=== PATIENT | female | born 1975 | race Caucasian/White ===

== ENCOUNTER → 2016-08-26 | Outpatient (CLI) | payer BC ==
--- NOTE | 2016-08-26 11:56 | MM ---
Reason for exam: additional evaluation requested from prior study. Last mammogram was performed 1 year and 1 month ago. History: Taking hormonal contraceptives for 7 years. Physical Findings: Nurse did not find any significant physical abnormalities on exam. MG Diagnostic Mammo w CAD PAIGE Bilateral CC and MLO view(s) were taken. Prior study comparison: August 06, 2015, left breast MG 3d work up w/cad LT. July 25, 2015, bilateral MG screening mammo w CAD. The breast tissue is heterogeneously dense. This may lower the sensitivity of mammography. The nodularity far posterior 9 o'clock left breast is stable to slightly smaller. This can be reassessed again in 1 year. We not prior ultrasound showed cysts. No significant new findings when compared with previous films. These results were verbally communicated with the patient and result sheet given to the patient on 08/26/16. ASSESSMENT: Probably benign, BI-RAD 3 RECOMMENDATION: Follow-up diagnostic mammogram of both breasts in 1 year.
== END | disposition home or self-care (01) ==
LOC: RADMAMWWP 10:21
PROVIDERS: ATTEND Obstetrics & Gynecology
DX: R92.8 Other abnormal and inconclusive findings on diagnostic imaging of breast (principal)

== ENCOUNTER → 2017-10-04 | Outpatient (CLI) | payer BC ==
--- NOTE | 2017-10-05 07:36 | MM ---
Reason for exam: additional evaluation requested from prior study. Last mammogram was performed 1 year and 1 month ago. History: Taking hormonal contraceptives for 7 years. Physical Findings: Nurse did not find any significant physical abnormalities on exam. MG Diagnostic Mammo w CAD PAIGE Bilateral CC and MLO view(s) were taken. Prior study comparison: August 26, 2016, bilateral MG diagnostic mammo w CAD PAIGE. August 06, 2015, left breast MG 3d work up w/cad LT. The breast tissue is heterogeneously dense. This may lower the sensitivity of mammography. There is chronic nodularity in the left breast, this is stable from 07/25/15. These results were verbally communicated with the patient and result sheet given to the patient on 10/04/17. ASSESSMENT: Benign, BI-RAD 2 RECOMMENDATION: Routine screening mammogram of both breasts in 1 year.
== END | disposition home or self-care (01) ==
LOC: RADMAMWWP 15:33
PROVIDERS: ATTEND Obstetrics & Gynecology
DX: R92.8 Other abnormal and inconclusive findings on diagnostic imaging of breast (principal)
CPT/HCPCS: 77066

== ENCOUNTER 2019-02-19 12:18 | Emergency (ER) | payer BC ==
[2019-02-19 13:08] VITALS: RESP 18; TEMP 98.6
[2019-02-19 13:39] LABS: Amorphous Sediment,Urine Occasional /hpf; Appearance,Urine Clear (Clear); Bilirubin,Urine Negative (Negative); Blood,Urine Moderate (Negative); Color,Urine Yellow; Glucose,Urine (UA) Negative (Negative); Ketones,Urine Negative (Negative); Leukocyte Esterase,Urine Negative (Negative); Mucus,Urine Moderate /hpf; Nitrite,Urine Negative (Negative); PH, Urine 5.5 (5.0-8.0); Protein,Urine Trace (Negative); RBC,Urine <1 /hpf (0-5); Specific Gravity,Urine 1.025 (1.001-1.035); Squamous Epithelial Cell,Urine 1 /hpf (0-4); Urobilinogen,Urine <2.0 mg/dL (<2.0); WBC,Urine 2 /hpf (0-5)
[2019-02-19 14:09] LABS: ALT 21 U/L (9-52); AST 16 U/L (14-36); African American GFR (CKD) >90 (>60 ml/min/1.73 sqM); Albumin 3.8 g/dL (3.5-5.0); Alkaline Phosphatase 80 U/L (38-126); Amylase 58 U/L (30-110); Anion Gap 9 mmol/L; Blood Urea Nitrogen 11 mg/dL (7-17); Calcium 9.4 mg/dL (8.4-10.2); Carbon Dioxide 24 mmol/L (22-30); Chloride 107 mmol/L (98-107); Glucose 112 mg/dL (74-99); Lipase 116 U/L (23-300); Potassium 4.1 mmol/L (3.5-5.1); Sodium 140 mmol/L (137-145); Total Bilirubin 0.4 mg/dL (0.2-1.3); Total Protein 6.8 g/dL (6.3-8.2)
[2019-02-19 14:25] LABS: Basophils # (A) 0.1 k/uL (0-0.2); Basophils % (A) 1 %; Eosinophils # (A) 0.4 k/uL (0-0.7); Eosinophils % (A) 3 %; HCT 41.5 % (34.0-46.0); HGB 13.1 gm/dL (11.4-16.0); Lymphocytes # (A) 2.9 k/uL (1.0-4.8); Lymphocytes % (A) 23 %; MCH 27.3 pg (25.0-35.0); MCHC 31.5 g/dL (31.0-37.0); MCV 86.7 fL (80.0-100.0); Mean Platelet Volume 7.8; Monocytes # (A) 0.9 k/uL (0-1.0); Monocytes % (A) 7 %; Neutrophils # (A) 8.6 k/uL (1.3-7.7); Neutrophils % (A) 66 %; Platelet Count 475 k/uL (150-450); RBC 4.79 m/uL (3.80-5.40); RDW 14.8 % (11.5-15.5)
[2019-02-19] MEDS ORDERED: MORPHINE SULFATE 4 MG/ML SYRINGE IVP STA (14:38)
[2019-02-19] MEDS ORDERED: ONDANSETRON 4 MG/2 ML VIAL IVP STA ×2 (14:38→17:31)
[2019-02-19] MEDS ORDERED: SODIUM CHLORIDE 0.9% 1,000 ML IV ONE (14:38)
--- NOTE | 2019-02-19 15:10 | ED ---
Abdominal Pain HPI - General Chief Complaint: Abdominal Pain Stated Complaint: abdominal pain Time Seen by Provider: 02/19/19 14:24 Source: patient, RN notes reviewed, old records reviewed Mode of arrival: ambulatory Limitations: no limitations - History of Present Illness Initial Comments: Patient is a 44-year-old female presents emergency department today with left lower quadrant abdominal pain. Patient reports her symptoms started for the past 3 days. Patient states that she was sent to the emergency room for mental express Patient denies any urinary symptoms. She's not had a colonoscopy. She has no know history of diverticulitis. Surgical history includes cholecystectomy and hernia repair done by Dr. Newsome. She reports as years ago. She denies any significant vomiting but does feel nauseated. Denies any changes in bowel habits. - Related Data Previous Rx's Medication Instructions Recorded Amoxic-Pot Clav 875-125Mg 1 tab PO Q12HR #14 tablet 02/19/19 [Augmentin 875-125] Allergies Allergy/AdvReac Type Severity Reaction Status Date / Time No Known Allergies Allergy Verified 02/19/19 14:28 Review of Systems ROS Statement: Those systems with pertinent positive or pertinent negative responses have been documented in the HPI. ROS Other: All systems not noted in ROS Statement are negative. Past Medical History Past Medical History: No Reported History History of Any Multi-Drug Resistant Organisms: None Reported Past Surgical History: Section, Cholecystectomy, Hernia Repair Past Psychological History: No Psychological Hx Reported Smoking Status: Never smoker Past Alcohol Use History: Occasional Past Drug Use History: None Reported General Exam - General Exam Comments Initial Comments: 44-year-old female. Alert and oriented. No significant distress. Limitations: no limitations General appearance: alert, in no apparent distress Head exam: Present: atraumatic, normocephalic, normal inspection Eye exam: Present: normal appearance, PERRL, EOMI. Absent: scleral icterus, conjunctival injection, periorbital swelling ENT exam: Present: normal exam, mucous membranes moist Neck exam: Present: normal inspection. Absent: tenderness, meningismus, lymp hadenopathy Respiratory exam: Present: normal lung sounds bilaterally. Absent: respiratory distress, wheezes, rales, rhonchi, stridor Cardiovascular Exam: Present: regular rate, normal rhythm, normal heart sounds. Absent: systolic murmur, diastolic murmur, rubs, gallop, clicks GI/Abdominal exam: Present: soft, tenderness (Left lower quadrant tenderness.), normal bowel sounds. Absent: distended, guarding, rebound, rigid Extremities exam: Present: normal inspection, full ROM, normal capillary refill. Absent: tenderness, pedal edema, joint swelling, calf tenderness Back exam: Present: normal inspection Neurological exam: Present: alert, oriented X3, CN II-XII intact Psychiatric exam: Present: normal affect, normal mood Skin exam: Present: warm, dry, intact, normal color. Absent: rash Course Vital Signs 02/19/19 02/19/19 13:05 16:50 Temperature 98.6 F Pulse Rate 88 102 H Respiratory 18 18 Rate Blood Pressure 134/86 128/79 O2 Sat by Pulse 98 97 Oximetry Medical Decision Making - Medical Decision Making Patient is a 44-year-old female who presents emergency department today for evaluation with complaints of left-sided abdominal pain onset 3 days. Patient labwork was reviewed and unremarkable as had some mild leukocytosis. Urinalysis is positive for injury however Patient is on her menstrual cycle. This time abdomen and pelvis CT was completed shows evidence of enteritis information within the bowels. There is no sign of significant diverticulitis or abscess of the abdomen. There is also an abnormal finding over the latter discussed the Patient can get this reevaluated by bladder ultrasound for 6 weeks. Patient has been advised of these abnormal findings and discussion is follow-up with her PCP. The meantime we'll start the Patient on a short course of Flagyl and Rocephin with concern for possibility of some diverticulitis and close PCP fol low-up. - Lab Data Result diagrams: 02/19/19 13:35 02/19/19 13:35 Lab Results 02/19/19 02/19/19 02/19/19 Range/Units 13:10 13:35 13:35 WBC 13.0 H (3.8-10.6) k/uL RBC 4.79 (3.80-5.40) m/uL Hgb 13.1 (11.4-16.0) gm/dL Hct 41.5 (34.0-46.0) % MCV 86.7 (80.0-100.0) fL MCH 27.3 (25.0-35.0) pg MCHC 31.5 (31.0-37.0) g/dL RDW 14.8 (11.5-15.5) % Plt Count 475 H (150-450) k/uL Neutrophils % 66 % Lymphocytes % 23 % Monocytes % 7 % Eosinophils % 3 % Basophils % 1 % Neutrophils # 8.6 H (1.3-7.7) k/uL Lymphocytes # 2.9 (1.0-4.8) k/uL Monocytes # 0.9 (0-1.0) k/uL Eosinophils # 0.4 (0-0.7) k/uL Basophils # 0.1 (0-0.2) k/uL Sodium 140 (137-145) mmol/L Potassium 4.1 (3.5-5.1) mmol/L Chloride 107 (98-107) mmol/L Carbon Dioxide 24 (22-30) mmol/L Anion Gap 9 mmol/L BUN 11 (7-17) mg/dL Creatinine 0.59 (0.52-1.04) mg/dL Est GFR (CKD-EPI)AfAm >90 (>60 ml/min/1.73 sqM) Est GFR (CKD-EPI)NonAf >90 (>60 ml/min/1.73 sqM) Glucose 112 H (74-99) mg/dL Calcium 9.4 (8.4-10.2) mg/dL Total Bilirubin 0.4 (0.2-1.3) mg/dL AST 16 (14-36) U/L ALT 21 (9-52) U/L Alkaline Phosphatase 80 (38-126) U/L Total Protein 6.8 (6.3-8.2) g/dL Albumin 3.8 (3.5-5.0) g/dL Amylase 58 (30-110) U/L Lipase 116 (23-300) U/L Urine Color Yellow Urine Appearance Clear (Clear) Urine pH 5.5 (5.0-8.0) Ur Specific [place] 1.025 (1.001-1.035) Urine Protein Trace H (Negative) Urine Glucose (UA) Negative (Negative) Urine Ketones Negative (Negative) Urine Blood Moderate H (Negative) Urine Nitrite Negative (Negative) Urine Bilirubin Negative (Negative) Urine Urobilinogen <2.0 (<2.0) mg/dL Ur Leukocyte Esterase Negative (Negative) Urine RBC <1 (0-5) /hpf Urine WBC 2 (0-5) /hpf Ur Squamous Epith Cells 1 (0-4) /hpf Amorphous Sediment Occasional H (None) /hpf Urine Mucus Moderate H (None) /hpf - Radiology Data Radiology results: report reviewed Patient has some scattered prominent fluid-filled small bowel loops in the lower abdomen and pelvis could represent a mild enteritis. A 1.3 cm nodular somewhat strandy focus along the right paramedian anterior bladder wall of uncertain etiology. Some type of nonspecific information as possible such as inflammation of the Urecholine reminiscent, bladder ultrasound can attempt visualization. If this is seen by ultrasound the area can be reassessed by ultrasound for 6 weeks otherwise 3 month follow-up computed tomography scan to insure stability and resolution. Physiologic appearing changes in both ovaries. Disposition Clinical Impression: LLQ abdominal pain, Structural abnormality of bladder Disposition: HOME SELF-CARE Condition: Good Instructions (If sedation given, give patient instructions): Enteritis (ED), Acute Abdominal Pain (ED), Diverticulitis (ED) Additional Instructions: Patient advised to have close follow-up with PCP. Patient should've clear liquid diet. Return to the emergency department if any alarming signs or sym ptoms occur. Take the antibiotics as prescribed. Prescriptions: Amoxic-Pot Clav 875-125Mg [Augmentin 875-125] 1 tab PO Q12HR #14 tablet Is patient prescribed a controlled substance at d/c from ED?: No Referrals: Kenton Manjarrez MD [Primary Care Provider] - 1-2 days Time of Disposition: 17:26
--- NOTE | 2019-02-19 17:20 | CT ---
EXAMINATION TYPE: CT abdomen pelvis w con DATE OF EXAM: 02/19/2019 COMPARISON: NONE HISTORY: 44-year-old female Left lower quadrant pain. TECHNIQUE: Contiguous axial scanning of the abdomen and pelvis following administration of 100 ml Iso zuleyka 300 IV contrast. Delayed images through the kidneys and coronal/sagittal reconstructions perform ed. CT DLP: 963.3 mGycm Automated exposure control for dose reduction was used. FINDINGS: LUNG BASES: No significant abnormality is appreciated. LIVER/GB: Liver is mildly enlarged at 18.8 cm. Vascular shunting versus flash filling hemangioma late ral left liver lobe measuring 1.9 cm. Gallbladder surgically absent. No biliary ductal dilatation. Po rtal venous system is patent PANCREAS: No significant abnormality is seen. SPLEEN: No significant abnormality is seen. ADRENALS: No significant abnormality is seen. KIDNEYS: No significant abnormality is seen. REPRODUCTIVE ORGANS: IUD appropriately situated within the uterine cavity. Uterus is anteverted. Both ovaries are visualized. 1.8 cm dominant follicle or functional cyst in the right ovary. Peripherally enhancing 1.1 cm crenulated cystic structure left ovary likely corpus luteum. A tampon is present. 1.3 cm nodular soft tissue strandy focus along the right paramedian anterior bladder wall of uncertai n etiology BOWEL: Some prominent fluid-filled small bowel loops in the lower abdomen and pelvis. Scattered mild stool in the colon. No pericolonic inflammatory change seen. Appendix not discretely visualized. No secondary findings of acute appendicitis. Mild degenerative changes lower lumbar spine. IMPRESSION: 1. SOME SCATTERED PROMINENT FLUID-FILLED SMALL BOWEL LOOPS IN THE LOWER ABDOMEN AND PELVIS COULD REPR ESENT A MILD ENTERITIS. 2. A 1.3 CM NODULAR, SOMEWHAT STRANDY FOCUS ALONG THE RIGHT PARAMEDIAN ANTERIOR BLADDER WALL IS OF UN CERTAIN ETIOLOGY. SOME TYPE OF NONSPECIFIC INFLAMMATION IS POSSIBLE SUCH INFLAMMATION OF A URACHAL REMNANT. BLADDER ULTRASOUND CAN ATTEMPT VISUALIZATION. IF IT IS SEEN BY ULTRASOUND, THE AREA CAN BE REASSESSED BY ULTRASOUND IN 4-6 WEEKS. OTHERWISE, THREE-MONTH FOLLOW-UP CT CAN ENSURE STABILITY/RESOL UTION. 3. PHYSIOLOGIC APPEARING CHANGES WITHIN BOTH OVARIES.
[2019-02-19] MEDS ORDERED: AMOXIC-POT CLAV 875MG STARTER 2 EACH TABLET PO STA (17:32)
[2019-02-19] MEDS ORDERED: ACET/COD 300 MG/30 MG STARTER PACK 6 TAB BTL PO STA (17:41)
[2019-02-19 17:59] VITALS: BP 117/60; PULSE 88
== END 2019-02-19 17:58 | disposition home or self-care (01) ==
LOC: EC 12:18
DX: R10.32 Left lower quadrant pain (principal); Q64.70 Unspecified congenital malformation of bladder and urethra; D72.829 Elevated white blood cell count, unspecified
CPT/HCPCS: 36415; 80053; 82150; 83690; 85025; 81001; 74177; 99285; 96374; 96375; 96376; 96361; J2270; J2405; Q9967; 99284

== ENCOUNTER 2019-02-22 00:35 | Emergency (ER) | payer BC ==
[2019-02-22 00:44] VITALS: TEMP 98.3
[2019-02-22] MEDS ORDERED: ONDANSETRON 4 MG/2 ML VIAL IVP STA (00:52)
[2019-02-22] MEDS ORDERED: SODIUM CHLORIDE 0.9% 1,000 ML IV STA (00:52)
[2019-02-22] MEDS ORDERED: MORPHINE SULFATE 4 MG/ML SYRINGE IV STA (00:52)
[2019-02-22 01:51] LABS: Basophils # (A) 0.1 k/uL (0-0.2); Basophils % (A) 1 %; Eosinophils # (A) 0.5 k/uL (0-0.7); Eosinophils % (A) 4 %; HCT 37.3 % (34.0-46.0); HGB 12.2 gm/dL (11.4-16.0); Lymphocytes # (A) 3.9 k/uL (1.0-4.8); Lymphocytes % (A) 29 %; MCH 28.7 pg (25.0-35.0); MCHC 32.7 g/dL (31.0-37.0); MCV 87.8 fL (80.0-100.0); Monocytes # (A) 0.9 k/uL (0-1.0); Monocytes % (A) 6 %; Neutrophils # (A) 8.1 k/uL (1.3-7.7); Neutrophils % (A) 59 %; Platelet Count 481 k/uL (150-450); RBC 4.24 m/uL (3.80-5.40); RDW 15.3 % (11.5-15.5); WBC 13.7 k/uL (3.8-10.6)
--- NOTE | 2019-02-22 01:58 | XR ---
INDICATION: Abdominal pain COMPARISON: None. FINDINGS: Supine and upright AP views of the abdomen are provided. The bowel gas pattern is nonspecific and nonobstructive. No bowel dilatation is seen. There is no evidence of free air on upright views. There has been prior cholecystectomy. An IUD is in place within the uterus. There are no acute osseous findings. IMPRESSION: Nonspecific, nonobstructive bowel gas pattern.
[2019-02-22 02:18] LABS: ALT 93 U/L (9-52); AST 42 U/L (14-36); African American GFR (CKD) >90 (>60 ml/min/1.73 sqM); Albumin 3.7 g/dL (3.5-5.0); Alkaline Phosphatase 78 U/L (38-126); Amylase 48 U/L (30-110); Anion Gap 7 mmol/L; Blood Urea Nitrogen 9 mg/dL (7-17); Calcium 9.2 mg/dL (8.4-10.2); Carbon Dioxide 25 mmol/L (22-30); Chloride 106 mmol/L (98-107); Glucose 115 mg/dL (74-99); Lipase 99 U/L (23-300); Potassium 3.8 mmol/L (3.5-5.1); Sodium 138 mmol/L (137-145); Total Bilirubin 0.3 mg/dL (0.2-1.3); Total Protein 6.6 g/dL (6.3-8.2)
[2019-02-22 02:29] VITALS: BP 120/77; PULSE 73; RESP 16
[2019-02-22] MEDS ORDERED: HYDROmorphone 1 MG/ML 1 ML SYRINGE IVP STA (02:29)
--- NOTE | 2019-02-22 03:16 | ED ---
Abdominal Pain HPI - General Chief Complaint: Abdominal Pain Stated Complaint: Abd Pain Time Seen by Provider: 02/22/19 00:48 Source: patient Mode of arrival: ambulatory Limitations: no limitations - History of Present Illness Initial Comments: 44-year-old female patient presents the emergency department today for evaluation of left lower quadrant abdominal pain. Patient states that symptoms started 5 days ago. Patient states she was seen and evaluated here for this on Tuesday. She was diagnosed with enteritis and discharged home. Patient states t srikanth the pain has worsened significantly. She describes as a sharp stabbing pains of the left lower abdomen. States the pain is radiating to the left low back. States that she has had nausea but no vomiting. Denies any fever or chills. Denies any hematuria, dysuria, urinary frequency, urinary urgency. Denies any abnormal vaginal bleeding or discharge. Patient denies any recent rash, shortness breath, chest pain, back pain, numbness, tingling, dizziness, weakness, headache, visual changes, or any other complaints. - Related Data Home Medications Medication Instructions Recorded Confirmed Acetaminophen-Codeine 300-30mg 02/22/19 02/22/19 [Tylenol w/codeine #3] Previous Rx's Medication Instructions Recorded Amoxic-Pot Clav 875-125Mg 1 tab PO Q12HR #14 tablet 02/19/19 [Augmentin 875-125] Allergies Allergy/AdvReac Type Severity Reaction Status Date / Time No Known Allergies Allergy Verified 02/19/19 14:28 Review of Systems ROS Statement: Those systems with pertinent positive or pertinent negative responses have been documented in the HPI. ROS Other: All systems not noted in ROS Statement are negative. Past Medical History Past Medical History: No Reported History History of Any Multi-Drug Resistant Organisms: None Reported Past Surgical History: Section, Cholecystectomy, Hernia Repair Past Psychological History: No Psychological Hx Reported Smoking Status: Never smoker Past Alcohol Use History: Occasional Past Drug Use History: None Reported General Exam Limitations: no limitations General appearance: alert, in no apparent distress, other (This is a well- developed, well-nourished adult female patient in no acute distress. Vital signs upon presentation are temperature 98.3F, pulse 98, respirations 20, blood pressure 126/91, pulse ox 96% on room air.) Eye exam: Present: normal appearance, PERRL, EOMI. Absent: scleral icterus, conjunctival injection, periorbital swelling ENT exam: Present: normal exam, normal oropharynx, mucous membranes moist Respiratory exam: Present: normal lung sounds bilaterally. Absent: respiratory distress, wheezes, rales, rhonchi, stridor Cardiovascular Exam: Present: regular rate, normal rhythm, normal heart sounds. Absent: systolic murmur, diastolic murmur, rubs, gallop, clicks GI/Abdominal exam: Present: soft, tenderness (Left lower quadrant tenderness), normal bowel sounds. Absent: distended, guarding, rebound, rigid Neurological exam: Present: alert, oriented X3, CN II-XII intact Psychiatric exam: Present: normal affect, normal mood Skin exam: Present: warm, dry, intact, normal color. Absent: rash Course Vital Signs 02/22/19 02/22/19 00:40 02:28 Temperature 98.3 F Pulse Rate 98 73 Respiratory 20 16 Rate Blood Pressure 126/91 120/77 O2 Sat by Pulse 96 98 Oximetry Medical Decision Making - Medical Decision Making 44-year-old female patient presents to the emergency department today for evaluation of left sided abdominal pain mostly in the left lower quadrant. Physical examination did reveal left lower quadrant tenderness. Labs reviewed and did reveal elevated white blood cell count at 13.7. Mildly elevated liver enzymes. As patient's pain significantly worsened we did perform CT abdomen and pelvis which showed diffusely fluid-filled small bowel loops possibly gastroenteritis, possibly a urinary remnant but no other findings. Patient is currently taking antibiotics for this. She'll be discharged home with Tylenol codeine and Zofran for nausea. She is instructed to follow-up with her surgeon Dr. Newsome discuss colonoscopy for further evaluation of her symptoms. She is instructed to follow-up with her primary care physician for recheck in 1-2 days. Return parameters discussed in detail. She verbalizes understanding and agrees with this plan - Lab Data Result diagrams: 02/22/19 01:25 02/22/19 01:25 Lab Results 02/22/19 02/22/19 02/22/19 Range/Units 01:25 01:25 01:25 WBC 13.7 H (3.8-10.6) k/uL RBC 4.24 (3.80-5.40) m/uL Hgb 12.2 (11.4-16.0) gm/dL Hct 37.3 (34.0-46.0) % MCV 87.8 (80.0-100.0) fL MCH 28.7 (25.0-35.0) pg MCHC 32.7 (31.0-37.0) g/dL RDW 15.3 (11.5-15.5) % Plt Count 481 H (150-450) k/uL Neutrophils % 59 % Lymphocytes % 29 % Monocytes % 6 % Eosinophils % 4 % Basophils % 1 % Neutrophils # 8.1 H (1.3-7.7) k/uL Lymphocytes # 3.9 (1.0-4.8) k/uL Monocytes # 0.9 (0-1.0) k/uL Eosinophils # 0.5 (0-0.7) k/uL Basophils # 0.1 (0-0.2) k/uL Sodium 138 (137-145) mmol/L Potassium 3.8 (3.5-5.1) mmol/L Chloride 106 (98-107) mmol/L Carbon Dioxide 25 (22-30) mmol/L Anion Gap 7 mmol/L BUN 9 (7-17) mg/dL Creatinine 0.57 (0.52-1.04) mg/dL Est GFR (CKD-EPI)AfAm >90 (>60 ml/min/1.73 sqM) Est GFR (CKD-EPI)NonAf >90 (>60 ml/min/1.73 sqM) Glucose 115 H (74-99) mg/dL Plasma Lactic Acid Akin 0.9 (0.7-2.0) mmol/L Calcium 9.2 (8.4-10.2) mg/dL Total Bilirubin 0.3 (0.2-1.3) mg/dL AST 42 H (14-36) U/L ALT 93 H (9-52) U/L Alkaline Phosphatase 78 (38-126) U/L Total Protein 6.6 (6.3-8.2) g/dL Albumin 3.7 (3.5-5.0) g/dL Amylase 48 (30-110) U/L Lipase 99 (23-300) U/L - Radiology Data Radiology results: report reviewed, image reviewed KUB x-ray of the abdomen is obtained. Report was reviewed in its entirety. Impression by Dr. Erma shows nonspecific, nonobstructive bowel gas pattern CT abdomen and pelvis is obtained with contrast. Report was reviewed in its entirety. Impression by Dr. Dolan shows diffusely fluid-filled small bowel some hyperemia, cannot exclude gastroenteritis. No bowel obstruction. Appendix is normal. Hepatic steatosis. Nonspecific structure anterior to the bladder, again this may represent urachal remnant. No significant inflammatory changes are seen. Overall no significant change from prior exam and no definitive acute processes identified. Disposition Clinical Impression: Abdominal pain, Enteritis Disposition: HOME SELF-CARE Condition: Good Instructions (If sedation given, give patient instructions): Abdominal Pain (ED), Enteritis (ED) Additional Instructions: Increase fluids. Take medication as directed. Follow up with the sticker hand for recheck as soon as possible. Return to the emergency department for any new, worsening, or concerning symptoms. Is patient prescribed a controlled substance at d/c from ED?: No Referrals: Kenton Manjarrez MD [Primary Care Provider] - 1-2 days Time of Disposition: 03:31
--- NOTE | 2019-02-22 03:17 | CT ---
EXAM: CT Abdomen and Pelvis With Intravenous Contrast CLINICAL HISTORY: ITS.REASON CT Reason: Pain TECHNIQUE: Axial computed tomography images of the abdomen and pelvis with intravenous contrast. CTDI is 13 mGy and DLP is 351 mGy-cm. This CT exam was performed using one or more of the following dose reduction techniques: automated exposure control, adjustment of the mA and/or kV according to patient size, and/or use of iterative reconstruction technique. COMPARISON: CT abdomen 02/19/19 FINDINGS: See impression. IMPRESSION: Since the short interval from 02/19/19: 1. Again there is diffusely fluid-filled small bowel with some hyperemia, cannot exclude gastroenteritis. No bowel obstruction. Appendix is normal. 2. Hepatic steatosis. 3. Nonspecific structure anterior to the bladder, again this may represent a urachal remnant. No significant inflammatory changes are seen. 4. Overall no significant change from the prior exam and no definitive acute process is identified.
[2019-02-22] MEDS ORDERED: ONDANSETRON 4 MG ODT STARTER PACK 2 TAB BTL PO STA (03:31)
[2019-02-22] MEDS ORDERED: ACET/COD 300 MG/30 MG STARTER PACK 6 TAB BTL PO STA (03:31)
== END 2019-02-22 04:16 | disposition home or self-care (01) ==
LOC: EC 00:35
DX: K52.9 Noninfective gastroenteritis and colitis, unspecified (principal); Z79.891 Long term (current) use of opiate analgesic; Z90.49 Acquired absence of other specified parts of digestive tract
CPT/HCPCS: 99284; 96374; 96375 ×2; 96361; 36415; 80053; 82150; 83605; 83690; 85025; 74018; 74177; J2270; J2405; J1170; S0119; Q9967

== ENCOUNTER → 2019-10-15 | Outpatient (CLI) | payer BC ==
--- NOTE | 2019-10-17 07:35 | MM ---
Reason for exam: screening (asymptomatic). Last mammogram was performed 2 years ago. History: Taking hormonal contraceptives for 12 years. Physical Findings: A clinical breast exam by your physician is recommended on an annual basis and results should be correlated with mammographic findings. MG 3D Screening Mammo W/Cad Bilateral CC and MLO view(s) were taken. Prior study comparison: October 04, 2017, bilateral MG diagnostic mammo w CAD PAIGE. August 26, 2016, bilateral MG diagnostic mammo w CAD PAIGE. The breast tissue is heterogeneously dense. This may lower the sensitivity of mammography. Focal asymmetry posterior left breast. No significant changes when compared with prior studies. ASSESSMENT: Benign, BI-RAD 2 RECOMMENDATION: Routine screening mammogram of both breasts in 1 year.
== END | disposition home or self-care (01) ==
LOC: RADMAMWWP 16:30
PROVIDERS: ATTEND Obstetrics & Gynecology
DX: Z12.31 Encounter for screening mammogram for malignant neoplasm of breast (principal)
CPT/HCPCS: 77063; 77067

== ENCOUNTER → 2020-01-25 | Outpatient (CLI) | payer BC ==
[2020-01-25 10:28] LABS: Basophils # (A) 0.1 k/uL (0-0.2); Basophils % (A) 1 %; Eosinophils # (A) 0.6 k/uL (0-0.7); Eosinophils % (A) 6 %; HCT 42.8 % (34.0-46.0); HGB 13.8 gm/dL (11.4-16.0); Lymphocytes # (A) 2.8 k/uL (1.0-4.8); Lymphocytes % (A) 26 %; MCHC 32.2 g/dL (31.0-37.0); MCV 93.3 fL (80.0-100.0); Mean Platelet Volume 6.9; Monocytes # (A) 0.5 k/uL (0-1.0); Monocytes % (A) 5 %; Neutrophils # (A) 6.7 k/uL (1.3-7.7); Neutrophils % (A) 62 %; Platelet Count 432 k/uL (150-450); RBC 4.59 m/uL (3.80-5.40); WBC 10.8 k/uL (3.8-10.6)
== END | disposition home or self-care (01) ==
LOC: LABPAT 09:43
PROVIDERS: ATTEND Obstetrics & Gynecology
DX: Z01.818 Encounter for other preprocedural examination (principal)
CPT/HCPCS: 85025

== ENCOUNTER 2020-02-07 05:48 | Day surgery (SDC) | payer BC ==
[2020-02-05 12:46] VITALS: BMI 35.9
--- NOTE | 2020-02-06 07:34 | P.HPOB ---
History of Present Illness H&P Date: 02/06/20 Chief Complaint: Menorrhagia, IUD with retracted strings This patient is a pleasant 45 yr female with long standing menorrhagia and IUD with retracted strings. Office attempt at removal was unsuccessful so now presents for hysteroscopy, D&C, IUD removal and also requesting endometrial ablation for treatment of menorrhagia. She has taken Anaprox in the past with some relief of dysmenorrhea as well. intends on getting a vasectomy. Review of Systems Genitourinary: Reports menorrhagia Past Medical History Past Medical History: No Reported History History of Any Multi-Drug Resistant Organisms: None Reported Past Surgical History: Section, Cholecystectomy, Hernia Repair Past Anesthesia/Blood Transfusion Reactions: No Reported Reaction Past Psychological History: No Psychological Hx Reported Smoking Status: Never smoker Past Alcohol Use History: None Reported Past Drug Use History: None Reported - Past Family History Mother Family Medical History: Cancer, Pulmonary Embolus Additional Family Medical History / Comment(s): ESOPHAGEAL CANCER Medications and Allergies Home Medications Medication Instructions Recorded Confirmed Type Phentermine HCl [Adipex P] 15 mg PO AC-[id number] 02/05/20 02/05/20 History Allergies Allergy/AdvReac Type Severity Reaction Status Date / Time No Known Allergies Allergy Verified 02/05/20 11:32 Exam - OBG Physical Exam Abdomen: bowel sounds normal, no diffuse tenderness, no bruit present, no guarding noted, no hepatomegaly, no splenomegaly, no mass Vulva: both: normal Vagina: normal moisture, no discharge Cervix: no lesion, no discharge Uterus: normal size Results Ultrasound shows normal uterus and ovaries. IUD in place. Assessment and Plan Assessment: This is a pleasant 45 yr female with longstanding menorrhagia and IUD in place with known retracted strings. Plan is hysteroscopy, D&C, IUD removal, and Novasure endometrial ablation. I have discussed this surgery in detail with Joy including the risks: infection, bleeding, possible uterine perforation and/or thermal injury. She also understands that this is not a form of control and needs to use a reliable form to prevent . (1) Menorrhagia with regular cycle Status: Chronic Code(s): N92.0 - EXCESSIVE AND FREQUENT MENSTRUATION WITH REGULAR CYCLE SNOMED Code(s): 523635798 (2) IUD (intrauterine device) in place Status: Chronic Code(s): Z97.5 - PRESENCE OF (INTRAUTERINE) CONTRACEPTIVE DEVICE SNOMED Code(s): 418844404
[~2020-02-07 05:48] MED LIST: DEXAMETHASONE SOD PHOSPHATE 10 MG/ML 1 ML VIAL IV ONE; LACTATED RINGERS 1,000 ML IV SCH; MIDAZOLAM 2 MG/2 ML VIAL IV PRN; ONDANSETRON 4 MG/2 ML VIAL IVP ONE; Pre Op ABX Message 1 EACH MISC MISCELLANE ONE
[2020-02-07] MEDS ORDERED: LIDOCAINE 1% (10MG/ML) FOR IV START INTRADERMA ONE (06:26)
[2020-02-07] MEDS ORDERED: ONDANSETRON 4 MG/2 ML VIAL ONE (06:30)
--- NOTE | 2020-02-07 07:37 | P.OP ---
Date of Procedure: 02/07/20 Preoperative Diagnosis: #1: Menorrhagia. #2: IUD in place with retracted strings Postoperative Diagnosis: Same Procedure(s) Performed: #1: Removal of IUD. #2: Hysteroscopy. #3: Dilation and curettage. #4: NovaSure endometrial ablation Anesthesia: ANGELA Surgeon: Emiliano Reyes Estimated Blood Loss (ml): 10 Urine output (ml): 25 Pathology: other (Uterine curettings) Condition: stable Disposition: PACU Indications for Procedure: Please see dictated H&P for intimate details of this patient's admission. Brief summary this is a pleasant 45-year-old 2 para 2 female with long- standing menorrhagia and also an IUD in place and retracted strings. Patient presents for IUD removal and hysteroscopy with D&C and endometrial ablation. Jenaro I've discussed the surgery and risks: Risks of infection, bleeding, possible uterine perforation, and/or thermal injury. All the patient's questions been answered and a written consent is obtained. Operative Findings: IUD was found to be in place. Uterine cavity appeared normal without evidence of polyps or fibroids. Description of Procedure: This patient is taken to the operating room where she is laid in the supine position. She subsequently undergoes general endotracheal anesthesia without incident. With an adequate level of anesthesia she's placed in dorsal lithotomy position. She has a vaginal perineal prep and drape. Bladder this time is drained for 25 mL of clear urine. Examination under anesthesia shows a mid position uterus of normal size. A weighted speculum was placed in the posterior vagina and the anterior lip of the cervix is gravid and Allis clamp. Using a hemostat I gently probed the endocervix grabbed the IUD strings and IUD is removed. After this is done the uterus is then sounded to 9 cm. Gentle dilation is done of the endocervix to allow the hysteroscope into the uterine cavity. Using saline solution, hysteroscopy is performed and the uterine cavity appears to be normal with a length of 6.0 cm. Hysteroscope was then removed. Cervix is dilated more to allow the NovaSure device into the uterine cavity. Before this is done a gentle but thorough 4 quadrant curettage is done for adequate tissue. The NovaSure device is then opened and appears to be intact. It is then seated in place and opens up to a width of 3.5 cm. With this done it passes the cavity integrity test and then is enabled at 116 W setting for 111 seconds. NovaSure device is then removed. Hysteroscopy is performed again and again appears to be completely ablated up to the endocervix. The Allis clamp and weighted speculum removed. Procedure is ended all counts are correct 3. There are no complications. Patient is awakened from anesthesia and taken recovery room satisfactory condition
[2020-02-07 07:47] VITALS: TEMP 97.4
[2020-02-07] MEDS: HYDROmorphone 0.5 MG/0.5 ML SYRINGE IVP PRN ×2 (07:47→08:05)
[2020-02-07] MEDS ORDERED: ACETAMINOPHEN IV (For NPO) 1,000 MG/100 ML VIAL IVPB ONE (08:02)
[2020-02-07 08:18] VITALS: RESP 18
[2020-02-07] MEDS ORDERED: LACTATED RINGERS 1,000 ML IV ONE (08:18)
[2020-02-07 08:55] VITALS: BP 137/89; PULSE 66
== END 2020-02-07 09:23 | disposition home or self-care (01) ==
LOC: OR 05:48
PROVIDERS: ATTEND Obstetrics & Gynecology
DX: N92.0 Excessive and frequent menstruation with regular cycle (principal); N72 Inflammatory disease of cervix uteri; N85.8 Other specified noninflammatory disorders of uterus; T83.39XA Other mechanical complication of intrauterine contraceptive device, initial encounter; K21.9 Gastro-esophageal reflux disease without esophagitis; Z79.899 Other long term (current) drug therapy; Z90.49 Acquired absence of other specified parts of digestive tract; Z98.890 Other specified postprocedural states; Z98.891 History of uterine scar from previous surgery; Z80.0 Family history of malignant neoplasm of digestive organs; Z82.49 Family history of ischemic heart disease and other diseases of the circulatory system
CPT/HCPCS: 81025; 88305; 58301; 58563; J1100; J2405; J0131; J1170

== ENCOUNTER → 2021-09-25 | Outpatient (CLI) | payer BC ==
--- NOTE | 2021-09-25 14:29 | CT ---
EXAMINATION TYPE: CT abdomen pelvis wo con DATE OF EXAM: 09/25/2021 COMPARISON: 02/22/2019 HISTORY: left sided abdominal pain CT DLP: 1047 mGycm Automated exposure control for dose reduction was used. TECHNIQUE: Helical acquisition of images was performed from the lung bases through the pelvis. FINDINGS: LUNG BASES: No significant abnormality is appreciated. LIVER/GB: Postcholecystectomy changes. Low-attenuation liver can be associated with hepatic. PANCREAS: No significant abnormality is seen. SPLEEN: No significant abnormality is seen. ADRENALS: No significant abnormality is seen. KIDNEYS: No significant abnormality is seen. ADENOPATHY: None visualized. OSSEOUS STRUCTURES: No significant abnormality is seen. BOWEL: No significant abnormality is seen. OTHER: There is a lobulated exophytic density measuring 2.2 cm extending off the anterior margin of t he uterus. There appears to be a prominence of the endometrial stripe and of fluid within the endocer vical canal. Again there appears to be nodular wall thickening and adjacent inferior wall the bladder may be sligh tly increased in size now measuring 1.1 cm. There is a fluid-filled cystic structure in the right adnexa measuring 2 cm likely related to ovarian cyst. IMPRESSION: 1. Suspect a uterine fibroid with fullness in the endometrium and endocervical canal. Recommend pelvi c ultrasound. 2. There is interval increase in size of a soft tissue nodule along the anterior margin of the wall t he bladder. Neoplasm in the differential diagnosis as well as urachal remnant.
== END | disposition home or self-care (01) ==
LOC: RADCTMAIN 11:37
PROVIDERS: ATTEND Family Medicine
DX: N32.89 Other specified disorders of bladder (principal)
CPT/HCPCS: 74176

== ENCOUNTER → 2022-12-04 | Outpatient (CLI) | payer BC ==
[2022-12-04 23:50] LABS: Basophils # (A) 0.12 X 10*3/uL (0.00-0.10); Basophils % (A) 0.8 %; Eosinophils % (A) 4.1 %; HCT 46.5 % (37.2-46.3); HGB 14.3 g/dL (12.0-15.0); Immature Grans, Automated 0.5 %; Lymphocytes # (A) 3.57 X 10*3/uL (0.90-5.00); Lymphocytes % (A) 24.4 %; MCH 30.1 pg (27.0-32.0); MCHC 30.8 g/dL (32.0-37.0); MCV 97.9 fL (80.0-97.0); Mean Platelet Volume 9.5 fL (9.5-12.2); Monocytes # (A) 1.09 X 10*3/uL (0.20-1.00); Monocytes % (A) 7.5 %; NRBC Per 100 WBC 0 /100 WBCS (0.0-0.0); Neutrophils # (A) 9.15 X 10*3/uL (1.80-7.70); Neutrophils % (A) 62.7 %; Platelet Count 549 X 10*3/uL (140-440); RBC 4.75 X 10*6/uL (4.10-5.20); RDW 13.1 % (11.5-14.5); WBC 14.61 X 10*3/uL (4.50-10.00)
[2022-12-05 08:26] LABS: ALT 23 U/L (8-44); AST 18 U/L (13-35); African American GFR (CKD) 120.2 (60.0-200.0); Albumin 4.4 g/dL (3.8-4.9); Albumin/Globulin Ratio 1.52 (1.60-3.17); Alkaline Phosphatase 96 U/L (41-126); BUN/Creat Ratio 10.91 Ratio (12.00-20.00); Blood Urea Nitrogen 7.5 mg/dL (9.0-27.0); Calcium 9.9 mg/dL (8.7-10.3); Carbon Dioxide 24.9 mmol/L (20.0-27.5); Chloride 106 mmol/L (96-109); Chol/HDL Ratio 4.71 Ratio; Globulin 2.9 g/dL (1.6-3.3); Glucose 82 mg/dL (70-110); LDL Cholesterol,Calculated 136.6 mg/dL (0.0-131.0); Non-African American GFR(CKD) 103.7 (60.0-200.0); Sodium 142 mmol/L (135-145); Total Protein 7.3 g/dL (6.2-8.2)
== END | disposition home or self-care (01) ==
LOC: LABWHC1 09:28
PROVIDERS: ATTEND Family Medicine
DX: Z00.00 Encounter for general adult medical examination without abnormal findings (principal)
CPT/HCPCS: 36415; 80053; 80061; 84439; 84443; 85025